=== PATIENT | male | born 1990 | race Caucasian/White ===

== ENCOUNTER 2022-03-31 12:07 | Emergency (ER) | payer MEDICAID ==
[~2022-03-31] VITALS: Ht 172.7 cm; Wt 82.0 kg
[2022-03-31 12:19] VITALS: BP 141/87
== END 2022-03-31 13:24 | disposition home or self-care (01) ==
LOC: ER 12:13
DX: Z48.02 Encounter for removal of sutures (principal)
CPT/HCPCS: 99281